=== PATIENT | male | born 1965 | race Caucasian/White ===

== ENCOUNTER 2020-06-16 21:57 | Emergency (ER) | payer BC, SELFPAY ==
--- NOTE | 2020-06-16 21:58 | W.ED.EXTPRO ---
HPI - Extremity Problem General: Chief complaint: General Medical Stated complaint: STATES BLOOD CLOT IN LEG Time Seen by Provider: 06/16/20 21:58 Source: patient Mode of arrival: ambulatory Limitations: no limitations History of Present Illness: HPI Narrative: Patient is a 55-year-old male who presents to ED today along with his for complaints of a possible blood clot to his left lower extremity. Patient tells me they recently arrived at [address] and states within a few hours of being there patient began noticing pain to his left lower extremity. He noticed a swollen firm area. There apparently was a physician at [place] [id number] who was concerned for a possible DVT thus recommended patient come to the ED for further evaluation. He is not having any shortness of breath or chest pain. He states his drive to [place] [address] today was 2.5 hours. He has not noticed any diffuse swelling to his lower extremity. He has not noticed any redness or warmth. He has no prior history of DVT. Patient is not on anticoagulation. MD Complaint: extremity pain Onset (ago): hour(s) Pain Consistency: constant Location: left and lower extremity Radiation: none Relieving factors: nothing Exacerbating factors: nothing Associated symptoms: Reports no associated symptoms; Deny chest pain or fever(s) Context: recent travel Review of Systems Const: Denies: fever(s), chills, body aches, fatigue or malaise Card: Denies: chest pain, palpitations, syncope or pre-syncope Resp: Denies: dyspnea Musc: Reports: extremity pain and extremity swelling (localized swelling to L LE); Denies: joint pain or joint swelling Neuro: Denies: numbness in extremities, weakness in extremities or sensory changes Physical Exam Const: COMMON NORMALS: no acute distress, average body habitus, patient oriented x3, no limitations, healthy appearing, alert and well nourished GENERAL APPEARANCE: cooperative ORIENTATION/CONSCIOUSNESS: Yes awake, Yes oriented to person, Yes oriented to place and Yes oriented to time Resp: COMMON NORMALS: normal respiratory effort and clear to auscultation bilaterally AUSCULTATION: clear to auscultation bilaterally Cardio: COMMON NORMALS: regular rate and regular rhythm RATE: regular rate RHYTHM: regular rhythm Extremity: COMMON NORMALS: full ROM, capillary refill normal, no clubbing, cyanosis or edema, no calf tenderness and no pedal edema NARRATIVE EXTREMITY EXAM: pt with firm very tender area to mid anterior lower leg; slight dusky appearance; no calf pain/negative Cl's; no calf swelling GENERAL: Yes normal exam except as noted Neuro: COMMON NORMALS: patient oriented x3 SENSORIUM/ORIENTATION: Yes alert, Yes oriented to person, Yes oriented to place and Yes oriented to time Skin: COMMON NORMALS: no rashes or lesions noted GENERAL SKIN EXAM: no rashes or lesions noted Course Vital Signs: Vital signs: Vital Signs Temperature 97.7 F 06/16/20 22:03 Pulse Rate 85 06/16/20 22:03 Respiratory Rate 16 06/16/20 22:03 Blood Pressure 159/98 06/16/20 22:03 Pulse Oximetry 97 06/16/20 22:03 MDM - Extremity (Nontraumatic) Imaging Data^: US venous L LE: My impression: Per Bishop Mancilla automotive paint technician-superficial thrombophlebitis to area of concern; no DVT Discharge Plan Discharge Patient Disposition: Home Clinical Impression: Acute superficial venous thrombosis of left lower extremity Condition: Stable Discharge Orders: Discharge ED (Routine); Ordered 06/16/20 Ordered By: Mary Hart Patient Instructions: Superficial Thrombophlebitis (ED), Thrombophlebitis - Superficial Coding Level of Care Code ED Medical Receptionist Biller for Chg Fwd Exam Detailed
--- NOTE | 2020-06-16 22:01 | USCV_ITS ---
TARA MÉNDEZ Age: 55 Gender: M : 1965 Exam Date: 06/16/2020 22:13 Ordering Phys: Mary Hart Technologist: Bishop Mancilla Exam Location: [facility] [place]_ Indication: LT LEG PAIN HISTORY: KNOT ON LT LEG PROCEDURES: Venous duplex imaging was performed in only the left lower extremity. The following venous structures were evaluated: common femoral vein, profunda vein, proximal portion of the greater saphenous vein, superficial femoral vein, and the popliteal vein. In addition, the posterior tibial and peroneal trunk were evaluated. On the left side, the common femoral, superficial femoral, profunda femoral, popliteal, posterior tibial, greater saphenous veins, and the peroneal trunk were identified and interrogated in the standard fashion. These veins were found to be easily compressible with spontaneous blood flow. FINDINGS: Normal 2-D Doppler and augmentation and compressibility throughout the lower extremity venous structures. Additional imaging through the proximal calf veins also reveals no thrombus. THERE IS SUPERFICAL THROMBUS IN THE DISTAL LT GREATER SAPH VEIN.. CONCLUSIONS No evidence of DVT in the above-mentioned identifiable veins. Thrombus was noted in the below-knee segment of the left greater saphenous vein. No similar previous studies are available for comparison Dr Osorio Blanchard MD [facility] (Electronically Signed) Final Date: 17 June 2020 18:47 S
[2020-06-16 22:03] VITALS: BP 159/98; PULSE 85; RESP 16; TEMP 36.5; O2SAT 97; BMI 24.4
[2020-06-16 22:37] VITALS: BP 148/92; PULSE 86; RESP 16; TEMP 36.5; O2SAT 97
== END 2020-06-16 22:39 | disposition home or self-care (01) ==
PROVIDERS: Emergency Provider Physician Assistant
DX: I82.812 Embolism and thrombosis of superficial veins of left lower extremity (principal)
CPT/HCPCS: 93971; 99282